=== PATIENT | male | born 1975 | race Caucasian/White ===

== ENCOUNTER 2022-06-02 16:55 | Emergency (ER) | payer OTHER ==
--- NOTE | 2022-06-02 16:39 | US ---
EXAMINATION TYPE: US venous doppler duplex LE RT DATE OF EXAM: 06/02/2022 4:32 PM COMPARISON: NONE CLINICAL HISTORY: M79.661 PAIN IN RIGHT LOWER LEG. Pain and swelling x 3 days. Hx DVT. Patient does n ot take blood thinners. SIDE PERFORMED: Right TECHNIQUE: The lower extremity deep venous system is examined utilizing real time linear array sonog kings with graded compression, doppler sonography and color-flow sonography. VESSELS IMAGED: Common Femoral Vein Deep Femoral Vein Greater Saphenous Vein * Femoral Vein Popliteal Vein Small Saphenous Vein * Proximal Calf Veins (* superficial vessels) Right Leg: Internal echoes are seen from distal femoral vein down through the prox calf veins. These vessels do not appear to compress completely. Color defect and no color flow shown in these vessels. IMPRESSION: Deep vein thrombosis suggested involving the distal femoral vein extending to the proximal calf veins
== END 2022-06-02 18:35 | disposition left against medical advice (07) ==
LOC: EC 16:55
DX: Z53.9 Procedure and treatment not carried out, unspecified reason (principal)
CPT/HCPCS: 99499